=== PATIENT | male | born 1945 | race Caucasian/White ===

== ENCOUNTER 2017-06-09 11:35 | Emergency (ER) | payer MEDICARE ==
[~2017-06-09] VITALS: Ht 157.5 cm; Wt 63.5 kg
[2017-06-09] MEDS ORDERED: HYDROmorphone PF 1 MG/ML DISP.SYRIN IV ONE (12:15)
[2017-06-09] MEDS ORDERED: KETOROLAC 30 MG/ML VIAL. IV ONE (12:15)
[2017-06-09] MEDS ORDERED: HYDROmorphone PF 1 MG/ML DISP.SYRIN IM ONE (12:30)
[2017-06-09 12:34] LABS: BASO # 0.1 x10^3/uL (0.0-0.2); BASO % 1 % (0-3); EOS # 0.1 x10^3/uL (0.0-0.7); EOS % 1 % (0-3); HEMATOCRIT 49.9 % (39.0-53.0); HEMOGLOBIN 16.4 g/dL (13.0-17.5); LYMPH # 2.2 x10^3/uL (1.0-4.8); LYMPH % 16 % (24-48); MEAN CORPUSCULAR HEMOGLOBIN 29 pg (25-35); MEAN CORPUSCULAR HGB CONC 33 g/dL (31-37); MEAN CORPUSCULAR VOLUME 88 fL (79-100); MONO # 1.6 x10^3/uL (0.0-1.1); MONO % 12 % (0-9); NEUT # 9.4 x10^3uL (1.8-7.7); NEUT % 70 % (31-73); PLATELET COUNT 280 x10^3/uL (140-400); RED BLOOD COUNT 5.65 x10^6/uL (4.30-5.70); RED CELL DISTRIBUTION WIDTH 13.7 % (11.5-14.5); WHITE BLOOD COUNT 13.3 x10^3/uL (4.0-11.0)
[2017-06-09 12:50] LABS: ALBUMIN 3.9 g/dL (3.4-5.0); ALBUMIN/GLOBULIN RATIO 0.9 (1.0-1.7); CALCIUM 9.3 mg/dL (8.5-10.1); CREATININE 1.2 mg/dL (0.7-1.3); GFR 59.5; TOTAL BILIRUBIN 1.1 mg/dL (0.2-1.0); TOTAL PROTEIN 8.4 g/dL (6.4-8.2)
[2017-06-09] MEDS ORDERED: IV NORMAL SALINE 1,000ML 1,000 ML IV ONE (13:00)
--- NOTE | 2017-06-09 13:11 | RAD ---
CT abdomen/pelvis Indication: Right flank pain Technique: CT abdomen/pelvis without IV contrast with multiplanar reformats. Comparison: None Findings: Heart is normal in size. Coronary artery calcifications noted. No pericardial or pleural effusion. There is outpouching of the lateral ventricular apex with fatty infiltration which may suggest prior infarct. Bibasilar atelectasis noted. Diffuse hepatic steatosis noted. Noncontrast appearance of the liver, spleen, pancreas, adrenals is within normal limits. Nonobstructing punctate bilateral renal stone. No hydronephrosis. No perinephric fluid collection. Status post cholecystectomy. Dilated CBD measuring 1.1 cm with smooth distal tapering. Borderline dilated pancreatic duct without obvious obstructing lesion. The ureters are normal in course and caliber. Diffuse moderate to severe colonic diverticulosis. Appendix is within normal limits. Prostate contains some dystrophic calcifications and is minimally enlarged measuring 4.3 x 4.0 cm No abdominal or pelvic adenopathy. No radiopaque stones in the bladder. Small bilateral fat-containing hernias. Multilevel degenerative disease in the spine. No suspicious bony lesions. Impression: 1. Nonobstructing punctate bilateral renal stones. No hydronephrosis or hydroureter. 2. Moderate to severe diffuse colonic diverticulosis without diverticulitis. PQRS Compliance Statement: One or more of the following individualized dose reduction techniques were utilized for this examination: 1. Automated exposure control 2. Adjustment of the mA and/or kV according to patient size 3. Use of iterative reconstruction technique
[2017-06-09 14:34] LABS: BILIRUBIN,URINE NEG (NEG); CLARITY,URINE CLEAR; COLOR,URINE YELLOW; GLUCOSE,URINE NEG (NEG); NITRITE,URINE NEG (NEG); RBC,URINE 0 /HPF (0-2); UROBILINOGEN,URINE 0.2 mg/dL (0.2 mg/dL)
[2017-06-09 14:35] LABS: BACTERIA,URINE 0 /HPF (0-FEW); HYALINE CASTS, URINE FEW /HPF; SQUAMOUS EPITHELIAL CELL,UR FEW /LPF
[2017-06-09] MEDS ORDERED: ONDA4TAB12 SL (15:15)
--- NOTE | 2017-06-09 15:15 | PHYS DOC ---
Past History Past Medical History: CAD, Cancer, CHF, GI Bleed, High Cholesterol, Hypertension, Kidney Stones, Other Past Surgical History: Angioplasty, Cholecystectomy, Other Smoking: Non-smoker Alcohol Use: None Drug Use: None Adult General Chief Complaint Chief Complaint: FLANK PAIN HPI HPI 21-year-old male with a history of many kidney stones in the past now presents to the emergency department complaining of right flank pain since yesterday area pain waxes and wanes. Patient is quite sure he has a kidney stone. This is the type of pain that he gets when he has them. Denies fevers chills sweats or shaking chills. He has nausea but no vomiting or diarrhea. Pain is not worse with movement. No other complaints Review of Systems Review of Systems Constitutional: Denies fever or chills [] Eyes: Denies change in visual acuity, redness, or eye pain [] HENT: Denies nasal congestion or sore throat [] Respiratory: Denies cough or shortness of breath [] Cardiovascular: No additional information not addressed in HPI [] GI: Denies abdominal pain, nausea, vomiting, bloody stools or diarrhea [] : Denies dysuria or hematuria [] Musculoskeletal: Denies back pain or joint pain [] Integument: Denies rash or skin lesions [] Neurologic: Denies headache, focal weakness or sensory changes [] Endocrine: Denies polyuria or polydipsia [] Current Medications Current Medications Current Medications Medications (Trade) Dose Ordered Sig/Cedric Start Time Stop Time Status Last Admin Dose Admin Hydromorphone HCl (Dilaudid) 1 mg 1X ONCE 06/09/17 12:30 06/09/17 12:31 DC 06/09/17 12:21 1 MG Ketorolac Tromethamine (Toradol) 30 mg 1X ONCE 06/09/17 12:15 06/09/17 12:16 DC 06/09/17 12:15 30 MG Sodium Chloride 1,000 ml @ 1,000 mls/hr 1X ONCE 06/09/17 13:00 06/09/17 13:59 DC 06/09/17 13:00 1,000 MLS/HR Allergies Allergies Allergies Coded Allergies Type Severity Reaction Last Updated Verified No Known Drug Allergies 06/09/17 No Physical Exam Physical Exam Constitutional: Well developed, well nourished, no acute distress, non-toxic appearance. [] HENT: Normocephalic, atraumatic, bilateral external ears normal, oropharynx moist, no oral exudates, nose normal. [] Eyes: PERRLA, EOMI, conjunctiva normal, no discharge. [] Neck: Normal range of motion, no tenderness, supple, no stridor. [] Cardiovascular:Heart rate regular rhythm, no murmur [] Lungs & Thorax: Bilateral breath sounds clear to auscultation [] Abdomen: Bowel sounds normal, soft, no tenderness, no masses, no pulsatile masses. [] Skin: Warm, dry, no erythema, no rash. [] Back: No tenderness, no CVA tenderness. [] Extremities: No tenderness, no cyanosis, no clubbing, ROM intact, no edema. [] Neurologic: Alert and oriented X 3, normal motor function, normal sensory function, no focal deficits noted. [] Psychologic: Affect normal, judgement normal, mood normal. [] Current Patient Data Vital Signs Vital Signs Date Time Temp Pulse Resp B/P (MAP) Pulse Ox O2 Delivery O2 Flow Rate FiO2 06/09/17 13:49 70 16 107/72 (84) 95 Room Air 06/09/17 11:50 98.1 Lab Results Laboratory Tests Test 06/09/17 12:25 06/09/17 14:15 White Blood Count 13.3 x10^3/uL (4.0-11.0) H Red Blood Count 5.65 x10^6/uL (4.30-5.70) Hemoglobin 16.4 g/dL (13.0-17.5) Hematocrit 49.9 % (39.0-53.0) Mean Corpuscular Volume 88 fL (79-100) Mean Corpuscular Hemoglobin 29 pg (25-35) Mean Corpuscular Hemoglobin Concent 33 g/dL (31-37) Red Cell Distribution Width 13.7 % (11.5-14.5) Platelet Count 280 x10^3/uL (140-400) Neutrophils (%) (Auto) 70 % (31-73) Lymphocytes (%) (Auto) 16 % (24-48) L Monocytes (%) (Auto) 12 % (0-9) H Eosinophils (%) (Auto) 1 % (0-3) Basophils (%) (Auto) 1 % (0-3) Neutrophils # (Auto) 9.4 x10^3uL (1.8-7.7) H Lymphocytes # (Auto) 2.2 x10^3/uL (1.0-4.8) Monocytes # (Auto) 1.6 x10^3/uL (0.0-1.1) H Eosinophils # (Auto) 0.1 x10^3/uL (0.0-0.7) Basophils # (Auto) 0.1 x10^3/uL (0.0-0.2) Sodium Level 137 mmol/L (136-145) Potassium Level 4.0 mmol/L (3.5-5.1) Chloride Level 102 mmol/L (98-107) Carbon Dioxide Level 30 mmol/L (21-32) Anion Gap 5 (6-14) L Blood Urea Nitrogen 10 mg/dL (8-26) Creatinine 1.2 mg/dL (0.7-1.3) Estimated GFR (Cockcroft-Gault) 59.5 BUN/Creatinine Ratio 8 (6-20) Glucose Level 122 mg/dL (70-99) H Calcium Level 9.3 mg/dL (8.5-10.1) Total Bilirubin 1.1 mg/dL (0.2-1.0) H Aspartate Amino Transferase (AST) 40 U/L (15-37) H Alanine Aminotransferase (ALT) 40 U/L (16-63) Alkaline Phosphatase 108 U/L (46-116) Total Protein 8.4 g/dL (6.4-8.2) H Albumin 3.9 g/dL (3.4-5.0) Albumin/Globulin Ratio 0.9 (1.0-1.7) L Lipase 189 U/L (73-393) Urine Collection Type Void Urine Color Yellow Urine Clarity Clear Urine pH 5.0 Urine Specific [place] >=1.030 Urine Protein Trace (NEG-TRACE) Urine Glucose (UA) Neg mg/dL (NEG) Urine Ketones (Stick) Neg mg/dL (NEG) Urine Blood Neg (NEG) Urine Nitrite Neg (NEG) Urine Bilirubin Neg (NEG) Urine Urobilinogen Dipstick 0.2 mg/dL (0.2 mg/dL) Urine Leukocyte Esterase Neg (NEG) Urine RBC 0 /HPF (0-2) Urine WBC 1-4 /HPF (0-4) Urine Squamous Epithelial Cells Few /LPF Urine Bacteria 0 /HPF (0-FEW) Urine Hyaline Casts Few /HPF Urine Mucus Mod /LPF EKG EKG [] Radiology/Procedures Radiology/Procedures [] Course & Med Decision Making Course & Med Decision Making Pertinent Labs and Imaging studies reviewed. (See chart for details) [] Dragon Disclaimer Dragon Disclaimer This chart was dictated in whole or in part using Voice Recognition software in a busy, high-work load, and often noisy Emergency Department environment. It may contain unintended and wholly unrecognized errors or omissions. Departure Departure: Impression: Primary Impression: Abdominal pain Additional Impressions: Low back pain Leukocytosis Disposition: HOME, SELF-CARE Condition: IMPROVED Referrals: MELI RUCKER MD (PCP) Patient Instructions: Abdominal Pain (Nonspecific), Back Pain, Adult, Leukocytosis Additional Instructions: Your symptoms today, as you had suspected, were very suspicious for and suggestive of a kidney stone passing. However a full workup has not shown any kidney stone being passed or evidence of recent passage. U do not have microscopic blood in your urine either. Your white blood cell count was elevated at 13.3. This is a nonspecific finding but it's important to follow up with your doctor for reevaluation of this and further workup and treatment as needed. Your labs are otherwise negative been given a copy of your CAT scan to follow up with your doctor regarding incidental findings such as prostate calcifications. Take 800 mg of ibuprofen every 6 hours as needed for pain and use Zofran under your tongue every 4 hours as needed for nausea. Follow-up with your doctor in the morning and return immediately for new severe worsening symptoms Scripts Ondansetron (ONDANSETRON ODT) 4 Mg Tab.rapdis 4 MG SL Q4HRS Y for NAUSEA, #16 TAB Prov: ERIS JIMÉNEZ MD 06/09/17 Problem Qualifiers ERIS JIMÉNEZ MD Jun 09, 2017 15:15
[2017-06-09 15:20] VITALS: BP 131/70
[2017-06-09] MEDS ORDERED: HYDROcodone/APAP 5/325MG 1 TAB TABLET ONE (15:22)
[2017-06-09] MEDS ORDERED: HYDROcodone/APAP 5/325MG 1 TAB TABLET PO ONE (15:30)
== END 2017-06-09 15:30 | disposition home or self-care (01) ==
LOC: ER 11:35
DX: R10.9 Unspecified abdominal pain (principal); M54.5 Low back pain; D72.829 Elevated white blood cell count, unspecified; E78.00 Pure hypercholesterolemia, unspecified; I11.0 Hypertensive heart disease with heart failure; I50.9 Heart failure, unspecified; I25.10 Atherosclerotic heart disease of native coronary artery without angina pectoris; Z87.442 Personal history of urinary calculi; Z98.61 Coronary angioplasty status
CPT/HCPCS: 36415; 74176; 80053; 81001; 83690; 85025; 96361; 96372; 96374; 99285; J1170; J1885; J7030

== ENCOUNTER → 2017-06-13 | Outpatient (CLI) | payer MEDICARE ==
[2017-06-09 15:20] VITALS: BP 131/70
[~2017-06-13] MED LIST: ONDA4TAB12 SL
--- NOTE | 2017-06-13 15:57 | RAD ---
Exam performed: CT of chest without contrast. History: Pneumonia. Date of service: 06/13/17 comparison: None available Technique: Contiguous helical acquisitions are obtained through the chest without IV contrast. Sagittal and coronal reformatted images are obtained and reviewed. Findings: Patchy infiltrates seen in the posterior basal segment of the right lower lobe with adjacent small pleural effusion. The left lung is clear. Lack of IV contrast limits evaluation of neck and intrathoracic great vessels, however the grossly normal in course and caliber. Thyroid gland appears normal. No dominant mediastinal or hilar adenopathy seen. Stent in the left anterior descending branch of the pulmonary artery. Limited evaluation of the upper abdominal structures is unremarkable. Bones are normal. Impression: Patchy infiltrate with air bronchogram seen in the posterior basal segment of the right lower lobe. Tiny right pleural effusion PQRS Compliance Statement: One or more of the following individualized dose reduction techniques were utilized for this examination: 1. Automated exposure control 2. Adjustment of the mA and/or kV according to patient size 3. Use of iterative reconstruction technique
== END | disposition home or self-care (01) ==
LOC: CT 14:20
PROVIDERS: ATTEND Internal Medicine
DX: J18.9 Pneumonia, unspecified organism (principal); R91.8 Other nonspecific abnormal finding of lung field; J90 Pleural effusion, not elsewhere classified
CPT/HCPCS: 71250

== ENCOUNTER 2017-06-14 00:15 | Emergency (ER) | payer MEDICARE ==
[~2017-06-14] VITALS: Ht 157.5 cm; Wt 63.5 kg
[2017-06-14 00:55] VITALS: BP 153/77
--- NOTE | 2017-06-14 01:17 | PHYS DOC ---
Past History Past Medical History: CAD, Cancer, CHF, GI Bleed, High Cholesterol, Hypertension, Kidney Stones, Other Past Surgical History: Angioplasty, Cholecystectomy, Other Smoking: Non-smoker Alcohol Use: None Drug Use: None Adult General Chief Complaint Chief Complaint: LOWER EXT PAIN [facility] HPI 71-year-old male with a history of anxiety and extensive medical problems now presents to the emergency department because he is not sure if he can take his restless leg medication at the same time is ibuprofen. Patient states he can't sleep because of his restless legs if he doesn't take his medication. He also needs to take ibuprofen and is under the impression that he can't take both of these. He does not have any leg pain or swelling or asymmetry. His legs are restless as they are every night. He would like to know if he can take his medication as previously prescribed. No other complaints Review of Systems Review of Systems Constitutional: Denies fever or chills [] Eyes: Denies change in visual acuity, redness, or eye pain [] HENT: Denies nasal congestion or sore throat [] Respiratory: Denies cough or shortness of breath [] Cardiovascular: No additional information not addressed in HPI [] GI: Denies abdominal pain, nausea, vomiting, bloody stools or diarrhea [] : Denies dysuria or hematuria [] Musculoskeletal: Denies back pain or joint pain [] Integument: Denies rash or skin lesions [] Neurologic: Denies headache, focal weakness or sensory changes [] Endocrine: Denies polyuria or polydipsia [] Allergies Allergies Allergies Coded Allergies Type Severity Reaction Last Updated Verified No Known Drug Allergies 06/09/17 No Physical Exam Physical Exam Well-appearing male no acute distress alert smiling communicative cooperative and appropriate. Benign exam. Both legs are normal-appearing nontender no asymmetry swelling edema or abnormality. Constitutional: Well developed, well nourished, no acute distress, non-toxic appearance. [] HENT: Normocephalic, atraumatic, bilateral external ears normal, oropharynx moist, no oral exudates, nose normal. [] Eyes: PERRLA, EOMI, conjunctiva normal, no discharge. [] Neck: Normal range of motion, no tenderness, supple, no stridor. [] Cardiovascular:Heart rate regular rhythm, no murmur [] Lungs & Thorax: Bilateral breath sounds clear to auscultation [] Abdomen: Bowel sounds normal, soft, no tenderness, no masses, no pulsatile masses. [] Skin: Warm, dry, no erythema, no rash. [] Back: No tenderness, no CVA tenderness. [] Extremities: No tenderness, no cyanosis, no clubbing, ROM intact, no edema. [] Neurologic: Alert and oriented X 3, no focal deficits noted. [] Psychologic: Affect normal, judgement normal, mood normal. [] EKG EKG [] Radiology/Procedures Radiology/Procedures [] Course & Med Decision Making Course & Med Decision Making Pertinent Labs and Imaging studies reviewed. (See chart for details) Signs and symptoms consistent with patient's baseline of anxiety regarding any of his medical conditions. Patient is currently asymptomatic except for his restless leg condition. Reassured him there is no contraindication to take his prescribed medication for his syndrome. Patient is aware to follow-up in the morning with his doctor to discuss any other concerns. He is aware to return immediately for new severe worsening symptoms, especially for any symptoms which represent an emergency. [] Dragon Disclaimer Dragon Disclaimer This chart was dictated in whole or in part using Voice Recognition software in a busy, high-work load, and often noisy Emergency Department environment. It may contain unintended and wholly unrecognized errors or omissions. Departure Departure: Impression: Primary Impression: Restless legs Additional Impressions: Restless legs syndrome Anxiety about health Disposition: 01 HOME, SELF-CARE Condition: GOOD Referrals: MELI RUCKER MD (PCP) Patient Instructions: Restless Legs Syndrome Additional Instructions: As you know you have restless leg syndrome. Continue your medication regimen as previously prescribed. Follow-up with your doctor tomorrow. Return immediately for new severe or worsening symptoms Problem Qualifiers ERIS JIMÉNEZ MD Jun 14, 2017 01:17
== END 2017-06-14 01:25 | disposition home or self-care (01) ==
LOC: ER 00:15
DX: G25.81 Restless legs syndrome (principal); F41.9 Anxiety disorder, unspecified; I11.0 Hypertensive heart disease with heart failure; I50.9 Heart failure, unspecified; I25.10 Atherosclerotic heart disease of native coronary artery without angina pectoris; Z87.442 Personal history of urinary calculi; Z98.62 Peripheral vascular angioplasty status
CPT/HCPCS: 99281

== ENCOUNTER 2021-01-04 09:16 | Emergency (ER) | payer MEDICARE, OTHER ==
[~2021-01-04] VITALS: Ht 157.5 cm; Wt 63.4 kg
[2021-01-04 10:01] LABS: BASO # 0.1 x10^3/uL (0.0-0.2); BASO % 1 % (0-3); EOS # 0.1 x10^3/uL (0.0-0.7); EOS % 2 % (0-3); HEMATOCRIT 46.1 % (39.0-53.0); HEMOGLOBIN 14.9 g/dL (13.0-17.5); LYMPH # 1.9 x10^3/uL (1.0-4.8); LYMPH % 20 % (24-48); MEAN CORPUSCULAR HEMOGLOBIN 28 pg (25-35); MEAN CORPUSCULAR HGB CONC 32 g/dL (31-37); MEAN CORPUSCULAR VOLUME 88 fL (79-100); MONO # 0.8 x10^3/uL (0.0-1.1); MONO % 9 % (0-9); NEUT # 6.5 x10^3uL (1.8-7.7); NEUT % 69 % (31-73); PLATELET COUNT 288 x10^3/uL (140-400); RED BLOOD COUNT 5.25 x10^6/uL (4.30-5.70); RED CELL DISTRIBUTION WIDTH 14.8 % (11.5-14.5); WHITE BLOOD COUNT 9.4 x10^3/uL (4.0-11.0)
[2021-01-04 10:07] LABS: GFR 72.6; POTASSIUM 3.9 mmol/L (3.5-5.1)
[2021-01-04] MEDS ORDERED: MORPHINE SULFATE 4 MG/ML DISP.SYRIN. IV ONE (10:15)
[2021-01-04] MEDS ORDERED: KETOROLAC 30 MG/ML VIAL. IVP ONE (10:15)
[2021-01-04] MEDS ORDERED: ONDANSETRON PF 4 MG/2 ML VIAL. IVP ONE (10:15)
[2021-01-04 10:19] LABS: ALBUMIN 3.8 g/dL (3.4-5.0); ALBUMIN/GLOBULIN RATIO 1.2 (1.0-1.7); MAGNESIUM 1.8 mg/dL (1.8-2.4); TOTAL BILIRUBIN 0.8 mg/dL (0.2-1.0); TOTAL PROTEIN 6.9 g/dL (6.4-8.2)
--- NOTE | 2021-01-04 10:27 | EKG ---
[address] [address] Test Date: 2021-01-04 Test Time: 09:30:22 Pat Name: RUDDY JAQUEZ Department: Room: Gender: M [facility] Manager: NIELS : 1945 Requested By: IMMANUEL BRANCH Order Number: [id number] Reading MD: Measurements Intervals [place] Rate: 68 P: 9 WI: 140 QRS: -18 QRSD: 78 T: 17 QT: 418 QTc: 449 Interpretive Statements SINUS RHYTHM LEFTWARD AXIS R-S TRANSITION ZONE IN V LEADS DISPLACED TO THE RIGHT QRS(T) CONTOUR ABNORMALITY CONSIDER ANTEROSEPTAL MYOCARDIAL DAMAGE POSSIBLY ABNORMAL ECG RI6.02 No previous ECG available for comparison
--- NOTE | 2021-01-04 10:47 | RAD ---
CT ABDOMEN+PELVIS WO History: Left flank pain. Comparison: CT abdomen and pelvis 06/09/2017. Technique: CT of the abdomen and pelvis without contrast. Findings: Lung bases: Clear lungs. No pleural or pericardial effusion. Coronary artery densities likely represe nt stents or heavy calcification. General abdomen: No ascites. No free air. Liver : Normal in size and attenuation. No masses seen. Gallbladder/Biliary Tree: Status post cholecystectomy. Redemonstrated common bile duct dilatation to 1.3 cm and mild intrahepatic biliary duct dilatation. Pancreas: Normal. Spleen: Normal in size and attenuation. Adrenal Glands: ?Normal. Genitourinary: No hydronephrosis or hydroureter.? Multiple bilateral renal stones, largest measures 3 mm on the left lower pole. 4 mm left proximal ureteral stone with trace left hydronephrosis. Minimal left perinephric stranding. Decompressed bladder. Gastrointestinal: Extensive colonic diverticulosis. Lymph nodes: No lymphadenopathy. Vessels: Aortoiliac calcification. Dense material in the right mesenteric root may represent emboliza tion coils. Pelvic Organs: ?Unremarkable. No masses. Soft tissues: Small fat-containing umbilical hernia. Bilateral fat-containing inguinal canals. Bones: No acute or aggressive lesions. ? Impression: 1. Left proximal ureteral stone measuring 4 mm with mild left hydronephrosis. 2. Bilateral nephrolithiasis. 3. Extensive colonic diverticulosis. ------ Exposure: One or more of the following individualized dose reduction techniques were utilized for thi s examination: 1. Automated exposure control 2. Adjustment of the mA and/or kV according to patient size 3. Use of iterative reconstruction technique. Electronically signed by: Andrew Mendiola MD (01/04/2021 10:45 AM) [facility]
[2021-01-04] MEDS ORDERED: TAMSULOSIN 0.4 MG CAP.ER.24H. PO ONE (11:00)
--- NOTE | 2021-01-04 11:23 | PHYS DOC ---
Past History Past Medical History: Anxiety, CAD, CHF, High Cholesterol, Heart Disease, Hypertension, Kidney Infection, Kidney Stones, CA, Pneumonia, Other Additional Past Medical Histor: cardiac arrest Past Surgical History: Cholecystectomy, Other Additional Past Surgical Histo: hernia surgery, ear cancer, kidney stone removal, 6 heart stents Smoking: Non-smoker Alcohol Use: None Drug Use: None General Adult EDM: Chief Complaint: FLANK PAIN HPI: HPI: Patient is a 75-year-old male who presented to ER due to left flank pain started this morning. Pain radiated to his left groin area. Patient denies any chest pain, no trouble breathing, no cough, no fever. Patient has history of kidney stone in the past, the pain is very similar. Patient has appointment with his urologist on January 13. Review of Systems: Review of Systems: Constitutional: Denies fever or chills Eyes: Denies change in visual acuity HENT: Denies nasal congestion or sore throat Respiratory: Denies cough or shortness of breath Cardiovascular: Denies chest pain or edema GI: POSITIVE FOR LEFT FLANK PAIN : Denies dysuria Musculoskeletal: Denies back pain or joint pain Integument: Denies rash Neurologic: Denies headache, focal weakness or sensory changes Endocrine: Denies polyuria or polydipsia Lymphatic: Denies swollen glands Psychiatric: Denies depression or anxiety Current Medications: Current Meds: Current Medications Medications (Trade) Dose Ordered Sig/Cedric Start Time Stop Time Status Last Admin Dose Admin Ketorolac Tromethamine (Toradol 30mg Vial) 30 mg 1X ONCE 01/04/21 10:15 01/04/21 10:21 DC 01/04/21 10:21 30 MG Morphine Sulfate (Morphine 4mg Syringe) 4 mg 1X ONCE 01/04/21 10:15 01/04/21 10:21 DC 01/04/21 10:22 4 MG Ondansetron HCl (Zofran) 4 mg 1X ONCE 01/04/21 10:15 01/04/21 10:21 DC 01/04/21 10:22 4 MG Tamsulosin HCl (Flomax) 0.4 mg 1X ONCE 01/04/21 11:00 01/04/21 11:22 DC Allergies: Allergies: Allergies Coded Allergies Type Severity Reaction Last Updated Verified No Known Drug Allergies 01/04/21 No Physical Exam: PE: Constitutional: Well developed, well nourished, no acute distress, non-toxic appearance. [] HENT: Normocephalic, atraumatic, bilateral external ears normal, oropharynx moist, no oral exudates, nose normal. [] Eyes: PERRLA, EOMI, conjunctiva normal, no discharge. [] Neck: Normal range of motion, no tenderness, supple, no stridor. [] Cardiovascular:Heart rate regular rhythm, no murmur [] Lungs & Thorax: Bilateral breath sounds clear to auscultation [] Abdomen: Bowel sounds normal, soft, LLQ tenderness TO PALPATION, no masses, no pulsatile masses. [] Skin: Warm, dry, no erythema, no rash. [] Back: No tenderness, LEFT CVA tenderness. [] Extremities: No tenderness, no cyanosis, no clubbing, ROM intact, no edema. [] Neurologic: Alert and oriented X 3, normal motor function, normal sensory function, no focal deficits noted. [] Psychologic: Affect normal, judgement normal, mood normal. [] Current Patient Data: Labs: Laboratory Tests Test 01/04/21 09:36 01/04/21 09:37 Urine Collection Type Unknown Urine Color Yellow Urine Clarity Hazy Urine pH 6.0 Urine Specific Mineral >=1.030 Urine Protein 30 mg/dl (NEG-TRACE) Urine Glucose (UA) Neg mg/dL (NEG) Urine Ketones (Stick) Neg mg/dL (NEG) Urine Blood Large (NEG) Urine Nitrite Neg (NEG) Urine Bilirubin Neg (NEG) Urine Urobilinogen Dipstick 0.2 mg/dL (0.2 mg/dL) Urine Leukocyte Esterase Neg (NEG) Urine RBC >40 /HPF (0-2) Urine WBC 0 /HPF (0-4) Urine Squamous Epithelial Cells Few /LPF Urine Bacteria 0 /HPF (0-FEW) Urine Mucus Slight /LPF White Blood Count 9.4 x10^3/uL (4.0-11.0) Red Blood Count 5.25 x10^6/uL (4.30-5.70) Hemoglobin 14.9 g/dL (13.0-17.5) Hematocrit 46.1 % (39.0-53.0) Mean Corpuscular Volume 88 fL (79-100) Mean Corpuscular Hemoglobin 28 pg (25-35) Mean Corpuscular Hemoglobin Concent 32 g/dL (31-37) Red Cell Distribution Width 14.8 % (11.5-14.5) H Platelet Count 288 x10^3/uL (140-400) Neutrophils (%) (Auto) 69 % (31-73) Lymphocytes (%) (Auto) 20 % (24-48) L Monocytes (%) (Auto) 9 % (0-9) Eosinophils (%) (Auto) 2 % (0-3) Basophils (%) (Auto) 1 % (0-3) Neutrophils # (Auto) 6.5 x10^3uL (1.8-7.7) Lymphocytes # (Auto) 1.9 x10^3/uL (1.0-4.8) Monocytes # (Auto) 0.8 x10^3/uL (0.0-1.1) Eosinophils # (Auto) 0.1 x10^3/uL (0.0-0.7) Basophils # (Auto) 0.1 x10^3/uL (0.0-0.2) Sodium Level 146 mmol/L (136-145) H Potassium Level 3.9 mmol/L (3.5-5.1) Chloride Level 107 mmol/L (98-107) Carbon Dioxide Level 29 mmol/L (21-32) Anion Gap 10 (6-14) Blood Urea Nitrogen 11 mg/dL (8-26) Creatinine 1.0 mg/dL (0.7-1.3) Estimated GFR (Cockcroft-Gault) 72.6 BUN/Creatinine Ratio 11 (6-20) Glucose Level 128 mg/dL (70-99) H Calcium Level 9.0 mg/dL (8.5-10.1) Magnesium Level 1.8 mg/dL (1.8-2.4) Total Bilirubin 0.8 mg/dL (0.2-1.0) Aspartate Amino Transferase (AST) 24 U/L (15-37) Alanine Aminotransferase (ALT) 25 U/L (16-63) Alkaline Phosphatase 107 U/L (46-116) Troponin I Quantitative < 0.017 ng/mL (0-0.055) KC-Lyl-B-Type Natriuretic Peptide 98 pg/mL (0-449) Total Protein 6.9 g/dL (6.4-8.2) Albumin 3.8 g/dL (3.4-5.0) Albumin/Globulin Ratio 1.2 (1.0-1.7) Lipase 176 U/L (73-393) Vital Signs: Vital Signs Date Time Temp Pulse Resp B/P (MAP) Pulse Ox O2 Delivery O2 Flow Rate FiO2 01/04/21 10:22 18 Room Air 01/04/21 10:22 70 169/104 (125) 98 01/04/21 09:25 97.0 EKG: EKG: [] Radiology/Procedures: Radiology/Procedures: [][address] [address] IMAGING REPORT Signed PATIENT: RUDDY JAQUEZ ACCOUNT: [id number] : 1945 LOCATION: ER AGE: 75 SEX: M EXAM STATUS: REG ER ORD. PHYSICIAN: IMMANUEL BRANCH DO REASON: left flank pain PROCEDURE: CT ABDOMEN PELVIS WO CONTRAST CT ABDOMEN+PELVIS WO History: Left flank pain. Comparison: CT abdomen and pelvis 06/09/2017. Technique: CT of the abdomen and pelvis without contrast. Findings: Lung bases: Clear lungs. No pleural or pericardial effusion. Coronary artery densities likely represent stents or heavy calcification. General abdomen: No ascites. No free air. Liver : Normal in size and attenuation. No masses seen. Gallbladder/Biliary Tree: Status post cholecystectomy. Redemonstrated common bile duct dilatation to 1.3 cm and mild intrahepatic biliary duct dilatation. Pancreas: Normal. Spleen: Normal in size and attenuation. Adrenal Glands: ?Normal. Genitourinary: No hydronephrosis or hydroureter.? Multiple bilateral renal stones, largest measures 3 mm on the left lower pole. 4 mm left proximal ureteral stone with trace left hydronephrosis. Minimal left perinephric stranding. Decompressed bladder. Gastrointestinal: Extensive colonic diverticulosis. Lymph nodes: No lymphadenopathy. Vessels: Aortoiliac calcification. Dense material in the right mesenteric root may represent embolization coils. Pelvic Organs: ?Unremarkable. No masses. Soft tissues: Small fat-containing umbilical hernia. Bilateral fat-containing inguinal canals. Bones: No acute or aggressive lesions. ? Impression: 1. Left proximal ureteral stone measuring 4 mm with mild left hydronephrosis. 2. Bilateral nephrolithiasis. 3. Extensive colonic diverticulosis. ------ Exposure: One or more of the following individualized dose reduction techniques were utilized for this examination: 1. Automated exposure control 2. Adjustment of the mA and/or kV according to patient size 3. Use of iterative reconstruction technique. Electronically signed by: Andrew Norwood MD (01/04/2021 10:45 AM) [facility] DICTATED AND SIGNED BY: ANDREW NORWOOD MD DATE: 01/04/21 [facility] CC: IMMANUEL BRANCH DO; MELI RUCKER MD ~MTH0 0 Heart Score: C/O Chest Pain: N/A Risk Factors: Risk Factors: DM, Current or recent (<one month) smoker, HTN, HLP, family history of CAD, obesity. Risk Scores: Score 0 - 3: 2.5% MACE over next 6 weeks - Discharge Home Score 4 - 6: 20.3% MACE over next 6 weeks - Admit for Clinical Observation Score 7 - 10: 72.7% MACE over next 6 weeks - Early Invasive Strategies Course & Med Decision Making: Course & Med Decision Making Pertinent Labs and Imaging studies reviewed. (See chart for details) Patient is a 75-year-old male who presented to ER due to left flank pain, CT scan show a formally limited left proximal ureteral stone, mild hydronephrosis. Patient was given pain medication in ER, he feel much better. Patient is scheduled to see his urologist on January 13. Ernestina Disclaimer: Ernestina Disclaimer: This electronic medical record was generated, in whole or in part, using a voice recognition dictation system. Departure Departure: Impression: Primary Impression: Kidney stone on left side Disposition: DC HOME SELF CARE/HOMELESS Condition: IMPROVED Referrals: MELI RUCKER MD (PCP) DARIUS DELGADO MD PLEASE FOLLOW UP WITH YOUR UROLOGIST OR THIS UROLOGIST THIS WEEK FOR REEVALUATION. Patient Instructions: Diet for Kidney Stones, Kidney Stones Additional Instructions: Thank you for visiting our Emergency Department. We appreciate you trusting us with your care. If any additional problems come up don't hesitate to return to visit us. Please follow up with your primary care provider so they can plan additional care if needed and know about the problem that you had. If symptoms worsen come back to the Emergency Department. Any concerning symptoms that start such as chest pain, shortness of air, weakness or numbness on one side of the body, running high fevers or any other concerning symptoms return to the ER. Scripts Ondansetron Hcl (ZOFRAN) 4 Mg Tablet 1 TAB PO Q6HRS PRN for NAUSEA, #20 TAB Prov: IMMANUEL BRANCH DO 01/04/21 Hydrocodone/Acetaminophen (Hydrocodone-Acetamin 5-325 mg) 1 Each Tablet 1 EACH PO Q6HRS PRN for PAIN, #20 TAB Prov: IMMANUEL BRANCH DO 01/04/21 Naproxen Sodium (ANAPROX DS) 550 Mg Tablet 1 TAB PO BID PRN for PAIN for 15 Days, #30 TAB 0 Refills Prov: IMMANUEL BRANCH DO 01/04/21 IMMANUEL BRANCH DO Jan 04, 2021 11:23
[2021-01-04 11:34] VITALS: BP 132/74
[2021-01-04] MEDS ORDERED: NAPR-682 PO (11:42)
[2021-01-04] MEDS ORDERED: HYDR-2759 PO (11:42)
[2021-01-04] MEDS ORDERED: ONDA4TAB7 PO (11:42)
== END 2021-01-04 11:45 | disposition home or self-care (01) ==
LOC: ER 09:16
DX: N13.2 Hydronephrosis with renal and ureteral calculous obstruction (principal); F41.9 Anxiety disorder, unspecified; I25.10 Atherosclerotic heart disease of native coronary artery without angina pectoris; I11.0 Hypertensive heart disease with heart failure; I50.9 Heart failure, unspecified; E78.00 Pure hypercholesterolemia, unspecified; I25.2 Old myocardial infarction; Z87.442 Personal history of urinary calculi
CPT/HCPCS: 36415; 74176; 80053; 83690; 83735; 83880; 84484; 85025; 93005; 96374; 96375; 99285; J1885; J2270; J2405

== ENCOUNTER → 2021-03-16 | Outpatient (CLI) | payer MEDICARE ==
[~2021-03-16] MED LIST changes: +HYDR-2759 PO; +NAPR-682 PO; +ONDA4TAB7 PO
[2021-03-16 12:12] LABS: CALCIUM 9.4 mg/dL (8.5-10.1); CREATININE 1.2 mg/dL (0.7-1.3); GFR 58.9; POTASSIUM 3.1 mmol/L (3.5-5.1)
== END ==
LOC: LAB 09:42
PROVIDERS: ATTEND Internal Medicine Cardiovascular Disease
DX: E78.5 Hyperlipidemia, unspecified (principal)
CPT/HCPCS: 36415; 80048

== ENCOUNTER → 2021-04-02 | Outpatient (CLI) | payer MEDICARE ==
[2021-04-02 15:50] LABS: CALCIUM 9.1 mg/dL (8.5-10.1); CREATININE 1.3 mg/dL (0.7-1.3); GFR 53.7; POTASSIUM 4.1 mmol/L (3.5-5.1)
== END ==
LOC: LAB 13:02
PROVIDERS: ATTEND Internal Medicine Cardiovascular Disease
DX: E87.6 Hypokalemia (principal)
CPT/HCPCS: 36415; 80048

== ENCOUNTER → 2022-02-22 | Outpatient (CLI) | payer MEDICARE | LOC: LAB 11:43 | PROVIDERS: ATTEND Urology | DX: C61 Malignant neoplasm of prostate (principal) | CPT/HCPCS: G0103 ==

== ENCOUNTER → 2022-02-22 | Outpatient (CLI) | payer MEDICARE ==
[2022-02-23 18:03] LABS: CHOLESTEROL/HDL RATIO 5.1
== END ==
LOC: LAB 11:52
PROVIDERS: ATTEND Family Medicine
DX: E78.5 Hyperlipidemia, unspecified (principal)
CPT/HCPCS: 80061